=== PATIENT | female | born 1960 | race Caucasian/White ===

== ENCOUNTER → 2023-10-26 09:20 | Outpatient (CLI) | payer OTHER, SELFPAY ==
--- NOTE | ~2023-10-26 | MR_ITS ---
MRI of the lumbar spine Clinical History: Compression fractures Technique: Axial T2-weighted images, and sagittal T1-weighted, T2-weighted, and T2 fat-sat images wer e acquired. Findings: There are chronic compression fracture deformities at the superior endplate regions of L3 a nd L4. There is marrow edema in the bilateral sacral alae and S1 vertebral body, most likely represen ting acute, partially imaged sacral insufficiency fractures. Moderate, acute compression fracture of T12 noted. At L1-L2, there is no disc bulge or herniation. No spinal canal stenosis or neural foraminal narrowin g. At L2-L3, there is mild disc bulge with mild facet arthropathy. No spinal canal stenosis or definite neural foraminal narrowing. At L3-L4, there is disc bulge and mild to moderate facet arthropathy. No sandra central canal stenosis . There is moderate to severe left neural foraminal narrowing, and moderate right neural foraminal na rrowing. At L4-L5, there is disc bulge and advanced facet arthropathy. No central canal stenosis. There is mod erate left neural foraminal narrowing, and moderate to severe right neural foraminal narrowing. At L5-S1, there is minimal disc bulge and mild facet arthropathy. No central canal stenosis. There is moderate to advanced left neural foraminal narrowing, and minimal right neural foraminal narrowing. Paravertebral soft tissues are unremarkable. Impression: Probable acute, partially imaged bilateral sacral insufficiency fractures. Acute, moderate T12 compression fracture deformity. Chronic compression fractures of L3 and L4. [id number] degenerative spondylosis, as above. Reviewed, dictated and finalized at [facility]. [employer] Impression: Probable acute, partially imaged bilateral sacral insufficiency fractures. Acute, moderate T12 compression fracture deformity. Chronic compression fractures of L3 and L4. [id number]-is-[id number] degenerative spondylosis, as above.
--- NOTE | ~2023-10-26 | MR_ITS ---
MRI of the thoracic spine Clinical History: T7, T12, L3 compression fractures Technique: Axial T2-weighted and gradient images, and sagittal T1-weighted, T2-weighted, and STIR huber ges were acquired. Findings: There is acute, moderate compression fracture of T12, with significant loss of height and a ssociated marrow edema and T1 hypointense fracture line. There is a chronic moderate compression frac ture deformity of T7, with loss of height but no marrow edema. Intraosseous hemangioma noted in the T 8 and T10 vertebral bodies. No significant disc bulge or herniation seen at any thoracic level. There is no spinal canal stenosis or cord compression. No abnormal signal seen in the spinal cord. Paravertebral soft tissues are unremarkable. Impression: Acute, moderate compression fracture of T12, as detailed above. Chronic, moderate compression fracture deformity of T7. Reviewed, dictated and finalized at [facility]. [employer] Impression: Acute, moderate compression fracture of T12, as detailed above. Chronic, moderate compression fracture deformity of T7.
== END ==
DX: S22.080A Wedge compression fracture of T11-T12 vertebra, initial encounter for closed fracture (principal); X58.XXXA Exposure to other specified factors, initial encounter
CPT/HCPCS: 72146; 72148